=== PATIENT | female | born 1985 | race African-American/Black ===

== ENCOUNTER 2018-01-03 15:44 | Emergency (ER) | payer MEDICAID ==
[~2018-01-03] VITALS: Ht 157.5 cm; Wt 54.4 kg
[2018-01-03 15:44] VITALS: BP_SYST 146
[2018-01-03 16:50] VITALS: BP_SYST 135
== END 2018-01-03 16:50 | disposition home or self-care (01) ==
LOC: SED 15:44
DX: H60.91 Unspecified otitis externa, right ear (principal); F17.210 Nicotine dependence, cigarettes, uncomplicated; R03.0 Elevated blood-pressure reading, without diagnosis of hypertension; Z88.8 Allergy status to other drugs, medicaments and biological substances
CPT/HCPCS: 99283

== ENCOUNTER 2018-04-24 08:36 | Emergency (ER) | payer MEDICAID ==
[~2018-04-24] VITALS: Ht 157.5 cm; Wt 56.7 kg
[2018-04-24 08:53] VITALS: BP_SYST 121
--- NOTE | 2018-04-24 09:01 | NUR ---
Patient to ER bed 4 to gown for evaluation. Side rails up. Report given to Vonda REYES.
--- NOTE | 2018-04-24 09:08 | NUR ---
Pt AAOx4 ambulated into ED c/o hematuria, oliguria, and dysuria x 2-3 days. Pt taking cranberry juice and increasing fluid intake with no relief. No other injuries/complaints per pt/noted. Will continue to monitor.
--- NOTE | 2018-04-24 09:30 | NUR ---
RUTHY Lockhart at bedside examining patient.
[2018-04-24 09:51] LABS: BILIRUBIN,URINE NEGATIVE (NEGATIVE); BLOOD, URINE NEGATIVE (NEGATIVE); CLARITY/URINE CLEAR (CLEAR); COLOR,URINE YELLOW (YELLOW); GLUCOSE,URINE NEGATIVE (NEGATIVE); KETONES,URINE NEGATIVE (NEGATIVE); LEUKOCYTE ESTERASE ,URINE NEGATIVE (NEGATIVE); NITRITE, URINE NEGATIVE (NEGATIVE); PROTEIN URINE NEGATIVE (NEGATIVE); UROBILINOGEN,URINE 0.2 (0.2-1.0)
[2018-04-24] MEDS ORDERED: AZITHROMYCIN 250 MG TABLET PO ONE (10:15)
[2018-04-24] MEDS ORDERED: cefTRIAXone 250 MG VIAL IM ONE (10:15)
[2018-04-24] MEDS ORDERED: LIDOCAINE 1%, 20 ML MDV 20 ML ONE (10:18)
--- NOTE | 2018-04-24 10:20 | NUR ---
Medication administered. Pt tolerated well. No adverse reactions noted.
[2018-04-24 10:31] VITALS: BP_SYST 103
--- NOTE | 2018-04-24 10:32 | NUR ---
Patient given written and verbal discharge instructions and verbalizes understanding. ER MD discussed with patient the results and treatment provided. Patient in stable condition. ID arm band removed. No Rx given. Patient educated on pain management and to follow up with PMD. Pain Scale 0/10. Opportunity for questions provided and answered. Medication side effect fact sheet provided.
[2018-04-25 21:14] LABS: CHLAMYDIA TRACHOMATIS NAA Negative (Negative); NEISSERIA GONORRHOEAE NAA Negative (Negative)
== END 2018-04-24 10:31 | disposition home or self-care (01) ==
LOC: SED 08:36
DX: R30.0 Dysuria (principal); R03.0 Elevated blood-pressure reading, without diagnosis of hypertension; Z88.8 Allergy status to other drugs, medicaments and biological substances
CPT/HCPCS: 81003; 81025; 87491; 87591; 96372; 99283; J0696; J2001; Q0144

== ENCOUNTER 2019-01-06 18:02 | Emergency (ER) | payer MEDICAID ==
[~2019-01-06] VITALS: Ht 157.5 cm; Wt 59.0 kg
[2019-01-06 18:06] VITALS: BP_SYST 137
[2019-01-06 21:29] VITALS: BP_SYST 126
== END 2019-01-06 21:29 | disposition home or self-care (01) ==
LOC: SED 18:02
DX: T18.9XXA Foreign body of alimentary tract, part unspecified, initial encounter (principal); Z88.8 Allergy status to other drugs, medicaments and biological substances; X58.XXXA Exposure to other specified factors, initial encounter; Y93.9 Activity, unspecified; Y92.89 Other specified places as the place of occurrence of the external cause; Y99.8 Other external cause status
CPT/HCPCS: 70360-TC; 81025; 99283

== ENCOUNTER 2021-01-31 11:39 | Emergency (ER) | payer MEDICAID ==
[~2021-01-31] VITALS: Ht 175.3 cm; Wt 59.9 kg
[2021-01-31] MEDS ORDERED: ONDANSETRON 4 MG ODT TAB PO ONE (12:00)
[2021-01-31 12:05] VITALS: BP_SYST 135
[2021-01-31 12:25] LABS: ANION GAP 16 (5-15); CALCIUM 9.1 mg/dL (8.4-11.0); CHLORIDE 104 mmol/L (98-107); CREATININE 0.68 mg/dL (0.55-1.30); GLUCOSE 91 mg/dL (70-99); POTASSIUM 4.3 mmol/L (3.5-5.1); SODIUM SERUM 144 mmol/L (136-145); UREA NITROGEN, BLOOD 9 mg/dL (8-21)
[2021-01-31 12:31] LABS: ALANINE AMINOTRANSFERASE 26 U/L (12-78); ALCOHOL, BLOOD 25 mg/dL (<10); ASPARTATE AMINOTRANSFERASE 19 U/L (10-37); TOTAL BILIRUBIN 0.2 mg/dL (0.0-1.0)
[2021-01-31 12:46] LABS: ACETAMINOPHEN < 1 ug/mL (1-30); BASOPHILS % (AUTO) 0.2 % (0.0-2.0); EOSINOPHILS % (AUTO) 0.4 % (0.0-4.0); GFR AFRICAN AMERICAN 128 mL/min (>90); HEMATOCRIT 41.2 % (36-48); HEMOGLOBIN 14.1 g/dL (12.0-16.0); LYMPHOCYTES # (AUTO) 1.7 K/uL (1.0-5.5); LYMPHOCYTES % (AUTO) 23.2 % (20.5-51.5); MEAN CORPUSCULAR HEMOGLOBIN 32 pg (27-31); MEAN CORPUSCULAR HGB CONC 34 % (32-36); MEAN CORPUSCULAR VOLUME 92 fL (79.0-98.0); MONOCYTES # (AUTO) 0.5 K/uL (0.0-1.0); MONOCYTES % (AUTO) 6.4 % (1.7-9.3); NEUTROPHILS # (AUTO) 5.2 K/uL (1.8-7.7); NEUTROPHILS % (AUTO) 69.8 % (40.0-70.0); PLATELET COUNT (AUTO) 309 K/uL (130-430); RED BLOOD CELL COUNT(AUTO) 4.46 MIL/uL (4.2-6.2); RED CELL DISTRIBUTION WIDTH 12.2 % (9.0-15.0); WHITE BLOOD COUNT (AUTO) 7.4 K/uL (4.8-10.8)
[2021-01-31 12:53] LABS: ACETONE, SERUM NEGATIVE (NEGATIVE)
[2021-01-31] MEDS ORDERED: NACL 0.9% 2,000 ML IV ONE (13:00)
[2021-01-31 13:21] LABS: INR 0.9 (0.8-1.2); PROTHROMBIN TIME 9.9 SECS (9.5-12.5)
[2021-01-31 13:59] LABS: BILIRUBIN,URINE NEGATIVE (NEGATIVE); BLOOD, URINE NEGATIVE (NEGATIVE); CLARITY/URINE SL CLOUDY (CLEAR); COLOR,URINE YELLOW (YELLOW); GLUCOSE,URINE NEGATIVE (NEGATIVE); KETONES,URINE 1+ (NEGATIVE); LEUKOCYTE ESTERASE ,URINE NEGATIVE (NEGATIVE); NITRITE, URINE NEGATIVE (NEGATIVE); PH,URINE 6.5 (5.0-8.0); PROTEIN URINE TRACE (NEGATIVE)
[2021-01-31 14:18] LABS: BACTERIA,URINE RARE /HPF (None Seen); MUCUS,URINE 1+ /LPF (None Seen); RBC,URINE 0-3 /HPF (0-3); WBC,URINE 0-3 /HPF (0-3)
[2021-01-31 14:23] LABS: BARBITURATE, URINE NEGATIVE (NEG <=200); BENZODIAZEPINE, URINE NEGATIVE (NEG <=150); CANNABINOID, URINE POSITIVE (NEG <=50); COCAINE, URINE NEGATIVE (NEG <=150); METHAMPHETAMINES SCREEN,URINE NEGATIVE (NEG <=500); OPIATE, URINE NEGATIVE (NEG <=100); PHENCYCLIDINE SCREEN,URINE NEGATIVE (NEG <=25); UR TRICYCLIC ANTIDEPRESSANTS NEGATIVE (NEG <=300); URINE AMPHETAMINE NEGATIVE (NEG <=500); URINE METHADONE NEGATIVE (NEG <=200); URINE OXYCODONE SCREEN NEGATIVE (NEG <=100); URINE PROPOXYPHENE SCREEN NEGATIVE (NEG <=300)
[2021-01-31] MEDS ORDERED: ONDA-8 TL (14:33)
== END 2021-01-31 15:14 | disposition home or self-care (01) ==
LOC: SED 11:39
DX: K31.84 Gastroparesis (principal); Z88.8 Allergy status to other drugs, medicaments and biological substances; Z79.899 Other long term (current) drug therapy
CPT/HCPCS: 36415; 80053; 80307; 81000; 81025; 82009; 84703; 85025; 85610; 85730; 96360; 99283; G0480; J7030; Q0162; G0481; G0482

== ENCOUNTER 2021-12-08 19:50 | Emergency (ER) | payer OTHER, MEDICAID ==
[~2021-12-08] VITALS: Ht 157.5 cm; Wt 61.2 kg
[~2021-12-08 19:50] MED LIST: ONDA-8 TL
[2021-12-08 20:02] VITALS: BP_SYST 103
[2021-12-08 22:37] VITALS: BP_SYST 126
== END 2021-12-08 22:37 | disposition home or self-care (01) ==
LOC: SED 19:50
DX: S22.32XA Fracture of one rib, left side, initial encounter for closed fracture (principal); Z88.8 Allergy status to other drugs, medicaments and biological substances; Z79.899 Other long term (current) drug therapy; V49.40XA Driver injured in collision with unspecified motor vehicles in traffic accident, initial encounter; Y93.89 Activity, other specified; Y92.89 Other specified places as the place of occurrence of the external cause; Y99.8 Other external cause status
CPT/HCPCS: 71250-TC; 76376; 99284

== ENCOUNTER 2022-07-18 17:43 | Emergency (ER) | payer MEDICAID, OTHER ==
[~2022-07-18] VITALS: Ht 157.5 cm; Wt 55.8 kg
[2022-07-18 17:45] VITALS: BP_SYST 128
--- NOTE | 2022-07-18 17:49 | NUR ---
Patient triaged and placed in waiting room. VSS and patient appears in no acute distress at this time. Accompanied by self, awaiting available bed, and MD notified of need for MSE. Will notify MD of current condition.
--- NOTE | 2022-07-18 18:58 | NUR ---
Dr. Figueroa is in triage room examining the patient PER DOCUMENTATION.
[2022-07-18] MEDS ORDERED: TOBR3.5O2 RIGHT EYE (19:15)
[2022-07-18 19:52] VITALS: BP_SYST 132
--- NOTE | 2022-07-18 19:56 | NUR ---
Patient given written and verbal discharge instructions and verbalizes understanding. ER MD discussed with patient the results and treatment provided. Patient in stable condition. ID arm band removed. Rx of given by MD. Patient educated on pain management and to follow up with PMD. Pain Scale . Opportunity for questions provided and answered. Medication side effect fact sheet provided. Discharged by Carolina OLIVEIRA.
== END 2022-07-18 19:52 | disposition home or self-care (01) ==
LOC: SED 17:43
DX: S05.11XA Contusion of eyeball and orbital tissues, right eye, initial encounter (principal); Z79.899 Other long term (current) drug therapy; W01.198A Fall on same level from slipping, tripping and stumbling with subsequent striking against other object, initial encounter; Y93.89 Activity, other specified; Y92.89 Other specified places as the place of occurrence of the external cause; Y99.8 Other external cause status
CPT/HCPCS: 99283

== ENCOUNTER 2023-12-18 07:15 | Emergency (ER) | payer MEDICAID ==
[~2023-12-18] VITALS: Ht 157.5 cm; Wt 59.0 kg
[~2023-12-18 07:15] MED LIST changes: +TOBR3.5O2 RIGHT EYE
[2023-12-18 07:19] VITALS: BP_SYST 131; PULSE 85; RESP 18; TEMP 98.3; O2SAT 98
[2023-12-18] MEDS ORDERED: IBUP-1969 PO (09:28)
[2023-12-18 09:42] VITALS: BP_SYST 131; PULSE 85; RESP 18; TEMP 98.3; O2SAT 98
== END 2023-12-18 09:40 | disposition home or self-care (01) ==
LOC: SED 07:15
DX: S00.83XA Contusion of other part of head, initial encounter (principal); S10.83XA Contusion of other specified part of neck, initial encounter; Z88.8 Allergy status to other drugs, medicaments and biological substances; W01.0XXA Fall on same level from slipping, tripping and stumbling without subsequent striking against object, initial encounter; Y93.89 Activity, other specified; Y92.89 Other specified places as the place of occurrence of the external cause; Y99.8 Other external cause status
CPT/HCPCS: 70450-TC; 72125-TC; 99284